=== PATIENT | female | born 1970 | race American Indian/Alaskan Native ===

== ENCOUNTER 2019-05-07 01:36 | Emergency (ER) | payer SELFPAY ==
[2019-05-07 02:09] LABS: Basophils % (Auto) 0.7 % (0.0-1.8); Eosinophils # (Auto) 0.1 K/mm3 (0.0-0.4); Eosinophils % (Auto) 2.2 % (0.0-4.3); Hematocrit 42.3 % (30.3-42.9); Hemoglobin 14.4 gm/dl (10.1-14.3); Lymphocytes # (Auto) 1.9 K/mm3 (1.2-5.4); Lymphocytes % (Auto) 31.9 % (13.4-35.0); Mean Corpuscular HGB Conc 34 % (30-34); Mean Corpuscular Volume 97 fl (79-97); Monocytes # (Auto) 0.5 K/mm3 (0.0-0.8); Monocytes % (Auto) 8.5 % (0.0-7.3); Platelet Count 245 K/mm3 (140-440); Red Blood Count 4.38 M/mm3 (3.65-5.03); Red Cell Distribution Width 13.5 % (13.2-15.2)
[2019-05-07 02:27] LABS: Albumin 4.5 g/dL (3.9-5); Calcium 9.4 mg/dL (8.4-10.2)
[2019-05-07 04:35] LABS: Bacteria,Urine 1+ /HPF (Negative); Mucus,Urine FEW /HPF
[2019-05-07 04:45] LABS: Bilirubin,Urine NEG (Negative); Blood,Urine MOD (Negative); Color,Urine Yellow (Yellow); Protein,Urine <15 mg/dL mg/dL (Negative); Urobilinogen,Urine < 2.0 mg/dL (<2.0)
[2019-05-07] MEDS ORDERED: MORPHINE 4 MG/1 ML INJ IV ONE (04:55)
[2019-05-07] MEDS ORDERED: SODIUM CHLORIDE 0.9% 1000 ML 1,000 ML IV ONE (04:55)
[2019-05-07] MEDS ORDERED: dexAMETHasone 20 MG/5 ML VIAL IV ONE (04:56)
[2019-05-07] MEDS ORDERED: diphenhydrAMINE 50 MG/ML VIAL IV ONE (04:57)
[2019-05-07] MEDS ORDERED: METOCLOPRAMIDE 10 MG/2 ML INJ IV ONE (04:57)
--- NOTE | 2019-05-07 06:07 | Event Note ---
ED Screening Note Date of service: 05/07/19 Time: 06:04 ED Screening Note: Patient complains of right lower quadrant pain x today. Rates pain as 8/10 in severity Patient currently on eliquis for blood clotting disorder She denies any fever, urinary symptoms, stool changes Medicine nausea without vomiting she also complains of a migraine x today +RLQ tenderness on exam This initial assessment/diagnostic orders/clinical plan/treatment(s) is/are subject to change based on patients health status, clinical progression and re- assessment by fellow clinical providers in the ED. Further treatment and workup at subsequent clinical providers discretion. Patient/guardian urged not to elope from the ED as their condition may be serious if not clinically assessed and managed. Initial orders include: labs CT
[2019-05-07] MEDS ORDERED: MORPHINE 4 MG/1 ML INJ IM ONE (06:48)
[2019-05-07] MEDS ORDERED: diphenhydrAMINE 50 MG/ML VIAL IM ONE (06:48)
[2019-05-07] MEDS ORDERED: METOCLOPRAMIDE 10 MG/2 ML INJ IM ONE (06:48)
[2019-05-07] MEDS ORDERED: dexAMETHasone 20 MG/5 ML VIAL IM ONE (06:51)
--- NOTE | 2019-05-07 07:03 | Emergency Department Report ---
HPI - General Chief Complaint: Abdominal Pain Time Seen by Provider: 05/07/19 04:39 - HPI HPI: 49-year-old -[place] female presents to the emergency department with complaint of a 2 day history of right lower quadrant abdominal pain and nausea without vomiting. It is sharp and constant. No obvious aggravating or alleviating factors. Patient has a history of factor V Leiden and is on Eliquis. She denies any fever, dysuria, vaginal bleeding or discharge. No recent travel or sick contacts at home. She has a previous history of cholecystectomy and hysterectomy. 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 - Surgical History Past Surgical History?: Yes Hx Cholecystectomy: Yes Additional Surgical History: thyroid, hysterectomy - Social History Smoking Status: Never Smoker Substance Use Type: None - Medications Home Medications: Home Medications Medication Instructions Recorded Confirmed Last Taken Type HYDROcodone/APAP 5-325 [[place] 1 each PO Q6HR PRN #8 tablet 05/07/19 Unknown Rx 5/325] Metoclopramide [Reglan] 10 mg PO TID PRN #20 tab 05/07/19 Unknown Rx ED Review of Systems ROS: Stated complaint: ABD PAIN Other details as noted in HPI Comment: All other systems reviewed and negative Constitutional: denies: chills, fever Eyes: denies: eye pain, vision change ENT: denies: ear pain, throat pain Respiratory: denies: cough, shortness of breath Cardiovascular: denies: chest pain, palpitations Gastrointestinal: abdominal pain, nausea. denies: vomiting Genitourinary: denies: dysuria, discharge Musculoskeletal: denies: back pain, arthralgia Skin: denies: rash, lesions Neurological: denies: headache, weakness Physical Exam - Physical Exam Vital Signs: Vital Signs 05/07/19 01:40 Temperature 98.6 F Pulse Rate 86 Respiratory 20 Rate Blood Pressure 109/75 O2 Sat by Pulse 100 Oximetry Physical Exam: GENERAL: The patient is well-developed well-nourished. HEENT: Normocephalic. Atraumatic. Patient has moist mucous membranes. EYES: Extraocular motions are intact. NECK: Supple. Trachea is midline. CHEST/LUNGS: Clear to auscultation. There is no respiratory distress noted. HEART/CARDIOVASCULAR: Regular. There is no tachycardia. There is no murmur. ABDOMEN: Abdomen is soft. Mild RLQ tenderness to palpation. No guarding. Patient has normal bowel sounds. There is no abdominal distention. SKIN:Skin is warm and dry. . NEURO: The patient is awake, alert, and oriented. The patient is cooperative. The patient has no focal neurologic deficits. Normal speech. MUSCULOSKELETAL: There is no tenderness or deformity. There is no evidence of acute injury. ED Course Vital Signs 05/07/19 01:40 Temperature 98.6 F Pulse Rate 86 Respiratory 20 Rate Blood Pressure 109/75 O2 Sat by Pulse 100 Oximetry ED Medical Decision Making - Lab Data Result diagrams: 05/07/19 02:03 05/07/19 02:03 - Radiology Data Radiology results: report reviewed CT abdomen pelvis wo con INDICATION / CLINICAL INFORMATION: MAIN: RLQ abd pain x 2 days . TECHNIQUE: Abdomen and pelvis CT performed following oral contrast only. All CT scans at this location are performed using CT dose reduction for ALARA by means of automated exposure control. COMPARISON: None. FINDINGS: LUNG BASES: Mild bibasilar scarring as in the right middle and left lower lobes. No significant effusions, though pericardial fluid slightly generous as on axial series 2, image 27 with maximum thickness 0.6 cm behind the left ventricle. Few small right infrahilar lymph node calcifications as also a small, 0.6 cm right lower lobe calcified granuloma as on axial image 45. Nonspecific distal esophageal prominence/thickening, not excluded for gastroesophageal reflux and approximately 5.6 cm hiatal hernia, amongst others. ABDOMEN: Please note that sensitivity to detect small visceral lesions is limited due to the absence of intravenous contrast. Cholecystectomy clips. Liver, spleen, pancreas, adrenals, aorta and kidneys within normal limits. IVC filter noted below the level of the renal veins. Few elongated left para-aortic densities (lymph nodes or vessels) may measure up to 1.4 x 0.9 cm as on axial image 134. No size significant mesenteric lymph nodes. Opacified GI tract nonobstructive. Grossly unremarkable nonopacified terminal ileum and appendix. Mild to moderate stool along nonopacified ascending colon with caliber up to 5.7 cm. No ascites. Tiny fat-containing umbilical hernia. PELVIS: Uterus surgically absent with few tiny pelvic phleboliths. Grossly unremarkable adnexa/ovaries and nonopacified rectosigmoid and urinary bladder. No free fluid or significant adenopathy. Few small subcutaneous varicosities noted along the left flank as on axial images 80-210, extending to the left groin. Approximately 2.4 cm sclerotic heterogeneity of the right femoral head noted superiorly without evidence of collapse. Left hip appears unremarkable. IMPRESSION: 1. No acute abdominal/right lower quadrant CT abnormality with a normal appendix noted, as described. Right hip avascular necrosis though noted. 2. Various other findings as at the imaged lung bases including distal esophageal thickening with approximately 5.6 cm hiatal hernia/gastroesophageal reflux, cholecystectomy, IVC filter, and hysterectomy, amongst others, on this limited, unenhanced exam, as detailed above. Please correlate. - Medical Decision Making This patient presents with right lower quadrant abdominal pain and some nausea without vomiting. Labs have been unremarkable. CT scan of the abdomen and pelvis with oral contrast does not show any appendicitis or any other significant acute process. Her vital signs stable throughout her ED course. The patient was treated with pain and nausea medication and is feeling improved. She will be discharged home to follow up with primary care and gastroenterology. She will return to the ER with any worsening of her symptoms or any acute distress. - Differential Diagnosis appendicitis, colitis, diverticulitis Critical Care Time: No Critical care attestation.: If time is entered above; I have spent that time in minutes in the direct care of this critically ill patient, excluding procedure time. ED Disposition Clinical Impression: Nausea Abdominal pain Qualifiers: Abdominal location: right lower quadrant Qualified Code(s): R10.31 - Right lower quadrant pain Disposition: DC-01 TO HOME OR SELFCARE Is pt being admited?: No Condition: Stable Instructions: Abdominal Pain (ED) Additional Instructions: Please follow up with your primary care physician in the next few days. I am giving you a referral for [facility] to follow up regarding her abdominal pains. Return to the emergency Department with any worsening of your symptoms or any acute distress. You have been prescribed a medication that can be sedating. Therefore, this medication cannot be taken prior to driving, working, being responsible for children, and cannot be mixed with alcohol of any quantity. Prescriptions: HYDROcodone/APAP 5-325 [[place] 5/325] 1 each PO Q6HR PRN #8 tablet PRN Reason: Pain Metoclopramide [Reglan] 10 mg PO TID PRN #20 tab PRN Reason: Nausea Referrals: PRIMARY CARE, [Primary Care Provider] - 3-5 Days [facility] [Provider Group] - 3-5 Days Time of Disposition: 09:04
--- NOTE | 2019-05-07 08:35 | Cat Scan Report ---
CT abdomen pelvis wo con INDICATION / CLINICAL INFORMATION: MAIN: RLQ abd pain x 2 days . TECHNIQUE: Abdomen and pelvis CT performed following oral contrast only. All CT scans at this locatio n are performed using CT dose reduction for ALARA by means of automated exposure control. COMPARISON: None. FINDINGS: LUNG BASES: Mild bibasilar scarring as in the right middle and left lower lobes. No significant effus ions, though pericardial fluid slightly generous as on axial series 2, image 27 with maximum thicknes s 0.6 cm behind the left ventricle. Few small right infrahilar lymph node calcifications as also a sm all, 0.6 cm right lower lobe calcified granuloma as on axial image 45. Nonspecific distal esophageal prominence/thickening, not excluded for gastroesophageal reflux and approximately 5.6 cm hiatal herni a, amongst others. ABDOMEN: Please note that sensitivity to detect small visceral lesions is limited due to the absence of intravenous contrast. Cholecystectomy clips. Liver, spleen, pancreas, adrenals, aorta and kidneys within normal limits. IVC filter noted below the level of the renal veins. Few elongated left para-ao rtic densities (lymph nodes or vessels) may measure up to 1.4 x 0.9 cm as on axial image 134. No siz e significant mesenteric lymph nodes. Opacified GI tract nonobstructive. Grossly unremarkable nonopac ified terminal ileum and appendix. Mild to moderate stool along nonopacified ascending colon with stacy iber up to 5.7 cm. No ascites. Tiny fat-containing umbilical hernia. PELVIS: Uterus surgically absent with few tiny pelvic phleboliths. Grossly unremarkable adnexa/ovarie s and nonopacified rectosigmoid and urinary bladder. No free fluid or significant adenopathy. Few small subcutaneous varicosities noted along the left flank as on axial images 80-210, extending t o the left groin. Approximately 2.4 cm sclerotic heterogeneity of the right femoral head noted superi nettie without evidence of collapse. Left hip appears unremarkable. IMPRESSION: 1. No acute abdominal/right lower quadrant CT abnormality with a normal appendix noted, as described. Right hip avascular necrosis though noted. 2. Various other findings as at the imaged lung bases including distal esophageal thickening with eliu roximately 5.6 cm hiatal hernia/gastroesophageal reflux, cholecystectomy, IVC filter, and hysterectom y, amongst others, on this limited, unenhanced exam, as detailed above. Please correlate. Signer Name: Giuseppe Leblanc Signed: 05/07/2019 8:31 AM Workstation Name: [id number]
[2019-05-07 09:17] VITALS: BP 110/70
== END 2019-05-07 09:16 | disposition home or self-care (01) ==
LOC: ED 01:36
DX: R10.31 Right lower quadrant pain (principal); R11.0 Nausea
CPT/HCPCS: 36415; 74176; 80053; 81001; 85025; 96372; 99284; J1100; J1200; J2270; J2765; J7030

== ENCOUNTER 2020-09-27 14:11 | Emergency (ER) | payer SELFPAY ==
[2020-09-27 14:23] VITALS: BP 117/76
[2020-09-27 16:26] LABS: Basophils % (Auto) 0.7 % (0.0-1.8); Eosinophils # (Auto) 0.1 K/mm3 (0.0-0.4); Eosinophils % (Auto) 1.3 % (0.0-4.3); Hematocrit 39.4 % (30.3-42.9); Hemoglobin 13.6 gm/dl (10.1-14.3); Lymphocytes # (Auto) 1.7 K/mm3 (1.2-5.4); Lymphocytes % (Auto) 34.8 % (13.4-35.0); Mean Corpuscular HGB Conc 34 % (30-34); Mean Corpuscular Volume 99 fl (79-97); Monocytes # (Auto) 0.5 K/mm3 (0.0-0.8); Monocytes % (Auto) 10.4 % (0.0-7.3); Platelet Count 220 K/mm3 (140-440); Red Blood Count 3.98 M/mm3 (3.65-5.03); Red Cell Distribution Width 15.3 % (13.2-15.2)
[2020-09-27 16:50] LABS: Bacteria,Urine 4+ /HPF (Negative); Bilirubin,Urine NEG (Negative); Blood,Urine SM (Negative); Color,Urine Yellow (Yellow); Mucus,Urine FEW /HPF; Protein,Urine <15 mg/dL mg/dL (Negative); Urobilinogen,Urine < 2.0 mg/dL (<2.0)
== END 2020-09-27 14:26 | disposition left against medical advice (07) ==
LOC: ED 14:11
DX: R10.9 Unspecified abdominal pain (principal); R51.9 Headache, unspecified; Z53.21 Procedure and treatment not carried out due to patient leaving prior to being seen by health care provider
CPT/HCPCS: 36415; 81001; 85025

== ENCOUNTER 2020-10-30 18:13 | Emergency (ER) | payer SELFPAY ==
--- NOTE | 2020-10-30 20:53 | Cat Scan Report ---
CT HEAD WITHOUT CONTRAST INDICATION / CLINICAL INFORMATION: Head injury with LOC. TECHNIQUE: All CT scans at this location are performed using CT dose reduction for ALARA by means of automated e xposure control. COMPARISON: None available. FINDINGS: HEMORRHAGE: No evidence of intracranial hemorrhage or extra-axial fluid collection. EXTRA-AXIAL SPACES: Cortical sulci, sylvian fissures and basilar cisterns have an unremarkable appear ance. VENTRICULAR SYSTEM: The third and lateral ventricles are of normal size and configuration. CEREBRAL PARENCHYMA: No areas of abnormal brain parenchymal attenuation are identified. There is no i ndication of recent infarction. MIDLINE SHIFT OR HERNIATION: There is no mass effect. CEREBELLUM / BRAINSTEM: Brainstem and cerebellum have an unremarkable appearance. MIDLINE STRUCTURES:No abnormalities of the pituitary gland or pineal region are identified. INTRACRANIAL VESSELS:No abnormalities are identified on this noncontrast head CT. ORBITS: visualized portions of the orbits have an unremarkable appearance. SOFT TISSUES of HEAD: No significant abnormality. CALVARIUM: Evaluation of bone windows reveals no abnormalities. PARANASAL SINUSES / MASTOID AIR CELLS: Visualized portions of the paranasal sinuses are free from inf lammatory mucosal disease. Mastoid air cells are normally pneumatized. ADDITIONAL FINDINGS: Moderate dural calcification is noted along the course of the superior sagittal sinus. IMPRESSION: 1. No significant intracranial abnormality. Signer Name: Ramin Meier MD Signed: 10/30/2020 8:49 PM Workstation Name: [id number]
--- NOTE | 2020-10-30 20:56 | Cat Scan Report ---
CT CERVICAL SPINE WITHOUT CONTRAST INDICATION / CLINICAL INFORMATION: Head injury with LOC. TECHNIQUE: Axial CT images were obtained through the cervical spine. Sagittal and coronal reformatted images wer e produced. All CT scans at this location are performed using CT dose reduction for ALARA by means of automated exposure control. COMPARISON: None available. FINDINGS: ALIGNMENT: Mild loss of the normal cervical lordosis is noted. VERTEBRAE: Vertebral morphology is fairly well-maintained throughout. No indication of fracture. DISC SPACES: Disc height is normally maintained throughout. DEGENERATIVE CHANGES: History arthritic changes are seen at the atlantoaxial junction between the ant erior arch of C1 and the odontoid process. CRANIOCERVICAL JUNCTION:No significant abnormality. SPINAL CANAL: Central spinal canal is adequate in size throughout cervical region. PARASPINAL SOFT TISSUES: No significant abnormality. ADDITIONAL FINDINGS: None. LUNG APICES: No significant abnormality of visualized lungs. IMPRESSION: 1. No significant abnormality on CT cervical spine without contrast. Signer Name: Ramin Meier MD Signed: 10/30/2020 8:52 PM Workstation Name: [id number]
== END 2020-10-30 20:00 ==
LOC: ED 18:13
DX: S09.90XA Unspecified injury of head, initial encounter (principal); Z53.21 Procedure and treatment not carried out due to patient leaving prior to being seen by health care provider; M54.9 Dorsalgia, unspecified; W20.8XXA Other cause of strike by thrown, projected or falling object, initial encounter; Y93.89 Activity, other specified; Y92.89 Other specified places as the place of occurrence of the external cause; Y99.8 Other external cause status
CPT/HCPCS: 70450; 72125

== ENCOUNTER 2020-10-31 11:16 | Emergency (ER) | payer SELFPAY ==
[2020-10-31 13:29] VITALS: BP 112/67
--- NOTE | 2020-10-31 14:15 | Emergency Department Report ---
ED General Adult HPI - General Chief complaint: Back Pain/Injury Stated complaint: BACK PAINS Time Seen by Provider: 10/31/20 14:07 Source: patient Mode of arrival: Ambulatory Limitations: No Limitations - History of Present Illness Initial comments: Patient is a 50-year-old female presents emergency room with complaints of wanting to know the results of her CT scans from yesterday. She states that she left due to a long wait. She reports that a piece of a deck fell on her yesterday. Patient states that she was working on a deck and one of the beams fell and hit her in the head and the back. pt is complaining of headache and back pain. She was able to immediately get up and ambulate. She denies any loss of consciousness. She states that she has had a couple episodes of vomiting. She denies any vision changes, numbness, weakness, bowel or bladder incontinence, any other injury. She is currently ambulatory without difficulty. She states her symptoms of her headache have been improving but she feels like she might of pulled a muscle. She states her pain is worse with twisting around and bending forward. Past medical history of factor V, seizures, hypothyroidism, anxiety. Patient has multiple medication allergies charted. She states that she had a partial hysterectomy. - Related Data Previous Rx's Medication Instructions Recorded Last Taken Type HYDROcodone/APAP 5-325 [[place] 1 each PO Q6HR PRN #8 tablet 05/07/19 Unknown Rx 5/325] Metoclopramide [Reglan] 10 mg PO TID PRN #20 tab 05/07/19 Unknown Rx Acetaminophen [Tylenol] 650 mg PO Q8HR PRN #20 capsule 10/31/20 Unknown Rx methOCARBAMOL [Robaxin TAB] 500 mg PO BID PRN #20 tab 10/31/20 Unknown Rx Allergies Allergy/AdvReac Type Severity Reaction Status Date / Time dicyclomine [From Bentyl] Allergy Hives Verified 05/07/19 01:48 ibuprofen Allergy Hives Verified 05/07/19 01:48 ketorolac [From Toradol] Allergy Hives Verified 05/07/19 01:48 ondansetron [From Zofran] Allergy Hives Verified 05/07/19 01:48 Penicillins Allergy Hives Verified 05/07/19 01:48 prochlorperazine Allergy Hives Verified 05/07/19 01:48 [From Compazine] Sulfa (Sulfonamide Allergy Hives Verified 05/07/19 01:48 Antibiotics) tramadol Allergy Hives Verified 05/07/19 01:48 ED Review of Systems ROS: Stated complaint: BACK PAINS Other details as noted in HPI Comment: All other systems reviewed and negative ED Past Medical Hx - Past Medical History Hx Seizures: Yes Additional medical history: Factor five bleeding disorder,hypothyroid - Surgical History Past Surgical History?: Yes Hx Cholecystectomy: Yes Additional Surgical History: thyroid, hysterectomy - Social History Smoking Status: Never Smoker - Medications Home Medications: Home Medications Medication Instructions Recorded Confirmed Last Taken Type HYDROcodone/APAP 5-325 [[place] 1 each PO Q6HR PRN #8 tablet 05/07/19 Unknown Rx 5/325] Metoclopramide [Reglan] 10 mg PO TID PRN #20 tab 05/07/19 Unknown Rx Acetaminophen [Tylenol] 650 mg PO Q8HR PRN #20 capsule 10/31/20 Unknown Rx methOCARBAMOL [Robaxin TAB] 500 mg PO BID PRN #20 tab 10/31/20 Unknown Rx ED Physical Exam - General Limitations: No Limitations General appearance: alert, in no apparent distress - Head Head exam: Present: atraumatic, normocephalic, other (no facial or skull bony ttp, no crepitus, no deformities ) - Eye Eye exam: Present: normal appearance, PERRL, EOMI. Absent: periorbital swelling, periorbital tenderness Pupils: Present: normal accommodation - ENT ENT exam: Present: mucous membranes moist - Neck Neck exam: Present: normal inspection, full ROM. Absent: tenderness, meningismus - Respiratory Respiratory exam: Present: normal lung sounds bilaterally. Absent: respiratory distress, wheezes, rales, rhonchi, stridor, chest wall tenderness, accessory m uscle use, decreased breath sounds, prolonged expiratory - Cardiovascular Cardiovascular Exam: Present: regular rate, normal rhythm, normal heart sounds. Absent: systolic murmur, diastolic murmur, rubs, gallop - Back Exam Back exam: Present: normal inspection, full ROM, paraspinal tenderness (bilateral T-spine and L-spine paraspinal muscular ttp, no midline C-spine, T- spine or L-spine ttp, no step offs, no deformities, no edema, no ecchymosis). Absent: vertebral tenderness - Neurological Exam Neurological exam: Present: alert, oriented X3, CN II-XII intact, normal gait. Absent: motor sensory deficit - Psychiatric Psychiatric exam: Present: normal affect, normal mood - Skin Skin exam: Present: warm, dry, intact ED Course Vital Signs 10/31/20 13:26 Temperature 97.8 F Pulse Rate 68 Respiratory 18 Rate Blood Pressure 112/67 O2 Sat by Pulse 99 Oximetry ED Medical Decision Making - Radiology Data Radiology results: report reviewed Ordering Physician: TRAY DAWSON MD Date of Service: 10/30/20 Procedure(s): CT cervical spine wo con Accession Number(s): [id number] cc: TRAY DAWSON MD CT CERVICAL SPINE WITHOUT CONTRAST INDICATION / CLINICAL INFORMATION: Head injury with LOC. TECHNIQUE: Axial CT images were obtained through the cervical spine. Sagittal and coronal reformatted images were produced. All CT scans at this location are performed using CT dose reduction for ALARA by means of automated exposure control. COMPARISON: None available. FINDINGS: ALIGNMENT: Mild loss of the normal cervical lordosis is noted. VERTEBRAE: Vertebral morphology is fairly well-maintained throughout. No ind ication of fracture. DISC SPACES: Disc height is normally maintained throughout. DEGENERATIVE CHANGES: History arthritic changes are seen at the atlantoaxial junction between the anterior arch of C1 and the odontoid process. CRANIOCERVICAL JUNCTION:No significant abnormality. SPINAL CANAL: Central spinal canal is adequate in size throughout cervical region. PARASPINAL SOFT TISSUES: No significant abnormality. ADDITIONAL FINDINGS: None. LUNG APICES: No significant abnormality of visualized lungs. IMPRESSION: 1. No significant abnormality on CT cervical spine without contrast. Signer Name: Ramin Meier MD Signed: 10/30/2020 8:52 PM Workstation Name: [id number] Transcribed By: Dictated By: Ramin Meier MD Electronically Authenticated By: Ramin Meier MD Signed Date/Time: 10/30/202051 DD/ 48 TD/TT: Print Ordering Physician: TRYA DAWSON MD Date of Service: 10/30/20 Procedure(s): CT head/brain wo con Accession Number(s): [id number] cc: TRAY DAWSON MD CT HEAD WITHOUT CONTRAST INDICATION / CLINICAL INFORMATION: Head injury with LOC. TECHNIQUE: All CT scans at this location are performed using CT dose reduction for ALARA by means of automated exposure control. COMPARISON: None available. FINDINGS: HEMORRHAGE: No evidence of intracranial hemorrhage or extra-axial fluid collection. EXTRA-AXIAL SPACES: Cortical sulci, sylvian fissures and basilar cisterns have an unremarkable appearance. VENTRICULAR SYSTEM: The third and lateral ventricles are of normal size and configuration. CEREBRAL PARENCHYMA: No areas of abnormal brain parenchymal attenuation are identified. There is no indication of recent infarction. MIDLINE SHIFT OR HERNIATION: There is no mass effect. CEREBELLUM / BRAINSTEM: Brainstem and cerebellum have an unremarkable appearance. MIDLINE STRUCTURES:No abnormalities of the pituitary gland or pineal region are identified. INTRACRANIAL VESSELS:No abnormalities are identified on this noncontrast head CT. ORBITS: visualized portions of the orbits have an unremarkable appearance. SOFT TISSUES of HEAD: No significant abnormality. CALVARIUM: Evaluation of bone windows reveals no abnormalities. PARANASAL SINUSES / MASTOID AIR CELLS: Visualized portions of the paranasal sinuses are free from inflammatory mucosal disease. Mastoid air cells are normally pneumatized. ADDITIONAL FINDINGS: Moderate dural calcification is noted along the course of the superior sagittal sinus. IMPRESSION: 1. No significant intracranial abnormality. Signer Name: Ramin Meier MD Signed: 10/30/2020 8:49 PM Workstation Name: [id number] [id number] Transcribed By: Dictated By: Ramin Meier MD Electronically Authenticated By: Ramin Meier MD Signed Date/Time: 10/30/202048 DD/ 46 TD/TT: - Medical Decision Making Patient is a 50-year-old female presents emergency room with complaints of wanting to know the results of her CT scans from yesterday. She states that she left due to a long wait. She reports that a piece of a deck fell on her yesterday. Patient states that she was working on a deck and one of the beams fell and hit her in the head and the back. pt is complaining of headache and back pain. She was able to immediately get up and ambulate. She denies any loss of consciousness. She states that she has had a couple episodes of vomiting. She denies any vision changes, numbness, weakness, bowel or bladder incontinence, any other injury. She is currently ambulatory without difficulty. She states her symptoms of her headache have been improving but she feels like she might of pulled a muscle. She states her pain is worse with twisting around and bending forward. Past medical history of factor V, seizures, hypothyroidism, anxiety. Patient has multiple medication allergies charted. She states that she had a partial hysterectomy. Vitals are normal. On exam:bilateral T-spine and L-spine paraspinal muscular ttp, no midline C-spine, T-spine or L-spine ttp, no step offs, no deformities, no edema, no ecchymosis, no focal neuro deficits, ambulatory without difficulty. CT of the head and cervical spine were performed yesterday with no acute abnormality. Symptoms and examination appear most consistent with mild head injury and muscle strain. Patient given prescription for medication. Advised patient Please take medication as prescribed as needed. Do not drive or operate machinery while taking muscle relaxer Robaxin. May use ice pack, heating pad, rest, and epsom salt bath. Follow-up with your primary care doctor for reexamination. Return to emergency room for any new or worse symptoms. Critical care attestation.: If time is entered above; I have spent that time in minutes in the direct care of this critically ill patient, excluding procedure time. ED Disposition Clinical Impression: Head injury Qualifiers: Encounter type: initial encounter Qualified Code(s): S09.90XA - Unspecified injury of head, initial encounter Back pain Qualifiers: Back pain location: thoracic back pain Chronicity: acute Back pain laterality: bilateral Qualified Code(s): M54.6 - Pain in thoracic spine Disposition: DC-01 TO HOME OR SELFCARE Is pt being admited?: No Does the pt Need Aspirin: No Condition: Stable Instructions: Head Injury, Adult, Muscle Strain, [id number] Additional Instructions: Please take medication as prescribed as needed. Do not drive or operate machinery while taking muscle relaxer Robaxin. May use ice pack, heating pad, rest, and epsom salt bath. Follow-up with your primary care doctor for reexamination. Return to emergency room for any new or worse symptoms. Prescriptions: methOCARBAMOL [Robaxin TAB] 500 mg PO BID PRN #20 tab PRN Reason: muscle spasm/pain Acetaminophen [Tylenol] 650 mg PO Q8HR PRN #20 capsule PRN Reason: pain Referrals: your, primary care doctor [Other] - 2-3 Days Forms: Work/School Release Form(ED) Time of Disposition: 14:15 Print Language: KAZAKH
== END 2020-10-31 14:40 | disposition home or self-care (01) ==
LOC: ED 11:16
DX: S09.90XA Unspecified injury of head, initial encounter (principal); M54.6 Pain in thoracic spine; Z79.899 Other long term (current) drug therapy; Z88.8 Allergy status to other drugs, medicaments and biological substances; Z88.0 Allergy status to penicillin; Z90.49 Acquired absence of other specified parts of digestive tract; Z90.710 Acquired absence of both cervix and uterus; Z98.890 Other specified postprocedural states; Z86.69 Personal history of other diseases of the nervous system and sense organs; W22.8XXA Striking against or struck by other objects, initial encounter; Y93.89 Activity, other specified; Y92.89 Other specified places as the place of occurrence of the external cause; Y99.8 Other external cause status
CPT/HCPCS: 99281